=== PATIENT | female | born 1950 | race Caucasian/White ===

== ENCOUNTER → 2018-10-21 | Outpatient (CLI) | payer MEDICARE, OTHER ==
[2017-08-24 09:46] VITALS: BP 144/82
[~2018-10-21] MED LIST: AMLO10TA6 PO; ASPI-482 PO; ATOR20TA58 PO; CIPR500T94 PO; ESOM40CA PO; IBUP-1027 PO; METO25TA4 PO; MULT-671 PO; POTA20TA12 PO; SERT100T PO
[2018-10-21] MEDS: BARIUM SULFATE 40% (APPLE) 148 GM PWD. PO ONE (13:34)
--- NOTE | 2018-10-21 14:09 | RAD ---
Video dysphagia study, 10/21/2018: HISTORY: Dysphagia The swallowing mechanism was examined fluoroscopically in the lateral projection while the patient ingested a variety of food materials mixed with barium. 1.1 minute of fluoroscopy time was utilized. One video fluoroscopic loop was recorded by member of the speech Department. The patient ingested the thin and thickened materials without difficulty. There is normal passage of the majority of the barium bolus through the cervical esophagus. No significant laryngeal penetration or aspiration was observed. Similar findings were evident with the barium coated solid. The patient utilized a straw without difficulty. IMPRESSION: No significant abnormality is detected. Electronically signed by: Darius aCrlos MD (10/21/2018 2:06 PM) [facility]
== END | disposition home or self-care (01) ==
LOC: RAD 12:52
PROVIDERS: ATTEND Family Medicine
DX: R13.10 Dysphagia, unspecified (principal)
CPT/HCPCS: 74230; 92611; G8996; G8997; G8998

== ENCOUNTER → 2019-12-22 | Day surgery (SDC) | payer MEDICARE, OTHER ==
[~2019-12-22] MED LIST changes: -AMLO10TA6 PO; +AMLO10TA8 PO; +HYDROmorphone 2 MG/ML VIAL IV PRN; +IV RINGERS,LACTATED 1000ML 1,000 ML IV ONE; +IV RINGERS,LACTATED 1000ML 1,000 ML IV SCH; +LIDOCAINE 1% PF 2 ML VIAL. ID PRN; +LIDOCAINE 2% PF 5 ML VIAL. ONE; +MORPHINE SULFATE 2 MG/ML VIAL. IV PRN; +ONDANSETRON PF 4 MG/2 ML VIAL. IV PRN; +PROCHLORPERAZINE 10 MG/2 ML VIAL. IV PRN; +PROPOFOL 20 ML IV ONE; +fentaNYL PF VIAL 100 MCG/2 ML VIAL IV PRN
[2019-12-22 14:14] VITALS: BP 143/70
--- NOTE | 2019-12-26 09:06 | PATHOLOGY ---
[facility] Accession Number: [id number] . 01 Material submitted: . esophagus - DISTAL ESOPHAGUS BIOPSY. Modifiers: distal . 01 Clinical history: . Pre-OP DX: GERD, cough Post-OP DX: Rule out Rock's . 02 Diagnosis: Esophageal biopsies, distal esophagus: - Reflux esophagitis. LBQ 12/23/2019 1716 Local . 02 Comment: Sections of the distal esophageal biopsy reveal multiple segments of focally tangentially oriented hyperplastic squamous esophageal mucosa showing focal chronic inflammation. The findings are consistent with reflux esophagitis. There is no evidence of Rock's change, dysplasia, or malignancy. (JPM/db; 12/23/2019) . 02 Electronically signed: . Dano Hodges MD, Pathologist NPI- [id number] . 01 Gross description: . Received in formalin labeled "Ashley Michelle, distal esophagus BX," are multiple segments of light-hernández soft tissue measuring 0.6 x 0.3 x 0.1 cm in aggregate dimensions. The specimen is filtered and entirely submitted in cassette A1. (TSD; 12/22/2019) TOB/TOB 12/22/2019 1822 Local . 02 Pathologist provided ICD-10: K21.0 . 02 CPT . 975403 Specimen Comment: A courtesy copy of this report has been sent to [phone], [phone] Specimen Comment: [id number] Specimen Comment: Report sent to / DR DEL REAL Performed at: 01 [facility] [address], [place], [place] [id number] MD Arnold Prabhakar MD Phone: [phone] Performed at: 02 [facility] [address] [place], [place] [id number] MD Dano Hodges MD Phone: [phone]
== END | disposition home or self-care (01) ==
LOC: ENDOS 12:26
PROVIDERS: ATTEND Internal Medicine Gastroenterology
DX: K21.0 Gastro-esophageal reflux disease with esophagitis (principal); I10 Essential (primary) hypertension; E78.5 Hyperlipidemia, unspecified; G81.90 Hemiplegia, unspecified affecting unspecified side; Z86.73 Personal history of transient ischemic attack (TIA), and cerebral infarction without residual deficits; Z82.49 Family history of ischemic heart disease and other diseases of the circulatory system; Z87.891 Personal history of nicotine dependence; Z79.899 Other long term (current) drug therapy; Z79.82 Long term (current) use of aspirin; Z96.642 Presence of left artificial hip joint; Z90.710 Acquired absence of both cervix and uterus; Z98.890 Other specified postprocedural states
CPT/HCPCS: 43239; 88305; J2001; J2704

== ENCOUNTER → 2021-04-05 | Outpatient (CLI) | payer MEDICARE, OTHER ==
[2019-12-22 14:14] VITALS: BP 143/70
[~2021-04-05] MED LIST changes: +AMLO-187 PO; -AMLO10TA8 PO; +BARIUM SULFATE 40% (APPLE) 148 GM PWD. PO ONE; -HYDROmorphone 2 MG/ML VIAL IV PRN; -IV RINGERS,LACTATED 1000ML 1,000 ML IV ONE; -IV RINGERS,LACTATED 1000ML 1,000 ML IV SCH; -LIDOCAINE 1% PF 2 ML VIAL. ID PRN; -LIDOCAINE 2% PF 5 ML VIAL. ONE; -MORPHINE SULFATE 2 MG/ML VIAL. IV PRN; -ONDANSETRON PF 4 MG/2 ML VIAL. IV PRN; -PROCHLORPERAZINE 10 MG/2 ML VIAL. IV PRN; -PROPOFOL 20 ML IV ONE; -fentaNYL PF VIAL 100 MCG/2 ML VIAL IV PRN
--- NOTE | 2021-04-05 16:16 | RAD ---
VIDEO FLUOROSCOPIC SWALLOWING STUDY History: Dysphagia, oral pharyngeal phase. Total fluoroscopic time: 3.2 minutes. Total fluoroscopic spot images: None saved. Findings: A video fluoroscopic swallowing study was performed with the speech pathologist present. Si lent laryngeal penetration and aspiration is seen with thin liquids which did improve with chin tuck position. No laryngeal penetration is seen with other consistency liquids or with solids. Esophageal dysmotility of the thoracic esophagus is seen. Impression: Silent laryngeal penetration and aspiration with thin liquids. Full report to follow by [facility] pathology. Electronically signed by: Chester Ram MD (04/05/2021 4:14 PM) [id number]
== END ==
LOC: RAD 13:37
PROVIDERS: ATTEND Family Medicine
DX: I69.891 Dysphagia following other cerebrovascular disease (principal)
CPT/HCPCS: 74230; 92611-GN